=== PATIENT | female | born 1970 | race Caucasian/White ===

== ENCOUNTER 2018-07-30 08:44 | Emergency (ER) | payer MEDICAID ==
[~2018-07-30] VITALS: Ht 162.6 cm; Wt 127.0 kg
[2018-07-30 08:54] VITALS: BP_SYST 165
[2018-07-30] MEDS ORDERED: KETOROLAC TROMETHAMINE 60 MG/2 ML VIAL IM ONE (09:30)
[2018-07-30 09:50] LABS: BASOPHILS # (AUTO) 0.1 K/uL (0.0-0.2); BASOPHILS % (AUTO) 1.1 % (0.0-2.0); EOSINOPHILS # (AUTO) 0.1 K/uL (0.0-0.4); EOSINOPHILS % (AUTO) 0.6 % (0.0-4.0); HEMATOCRIT 46.5 % (36-48); HEMOGLOBIN 15.2 g/dL (12.0-16.0); LYMPHOCYTES # (AUTO) 1.4 K/uL (1.0-5.5); LYMPHOCYTES % (AUTO) 13.5 % (20.5-51.5); MEAN CORPUSCULAR HEMOGLOBIN 30 pg (27-31); MEAN CORPUSCULAR HGB CONC 33 % (32-36); MEAN CORPUSCULAR VOLUME 91 fL (79.0-98.0); MONOCYTES # (AUTO) 0.4 K/uL (0.0-1.0); MONOCYTES % (AUTO) 4.2 % (1.7-9.3); NEUTROPHILS # (AUTO) 8.5 K/uL (1.8-7.7); NEUTROPHILS % (AUTO) 80.6 % (40.0-70.0); PLATELET COUNT (AUTO) 269 K/uL (130-430); RED BLOOD CELL COUNT(AUTO) 5.09 MIL/uL (4.2-6.2); RED CELL DISTRIBUTION WIDTH 13.3 % (9.0-15.0); WHITE BLOOD COUNT (AUTO) 10.5 K/uL (4.8-10.8)
[2018-07-30 10:03] LABS: CREATININE 0.59 mg/dL (0.55-1.30); POTASSIUM 4.3 mmol/L (3.5-5.1)
[2018-07-30 10:04] LABS: PROTHROMBIN TIME 10.4 SECS (9.5-12.5)
[2018-07-30 10:10] LABS: ALBUMIN 3.6 g/dL (3.4-4.8); C-REACTIVE PROTEIN QUANT 3.2 mg/dL (0-0.5); TOTAL BILIRUBIN 0.7 mg/dL (0.0-1.0); URIC ACID 4.4 mg/dL (2.4-7.0)
[2018-07-30 10:35] VITALS: BP_SYST 165
== END 2018-07-30 10:35 | disposition home or self-care (01) ==
LOC: SED 08:44
DX: M75.32 Calcific tendinitis of left shoulder (principal); Z91.040 Latex allergy status
CPT/HCPCS: 36415; 73030; 80053; 84550; 85025; 85610; 85730; 86140; 96372; 99285; J1885